=== PATIENT | female | born 1965 | race Caucasian/White ===

== ENCOUNTER 2024-04-18 19:35 | Emergency (ER) | payer MEDICAID ==
[~2024-04-18] VITALS: Ht 167.6 cm; Wt 70.0 kg
[2024-04-18 19:38] VITALS: O2SAT 97
[2024-04-18] MEDS: KETOROLAC 15MG/ML VIAL IM ONE (20:50)
[2024-04-18] MEDS ORDERED: LIDO700A15 TP (21:50)
[2024-04-18] MEDS ORDERED: NAPR-1176 MT (21:50)
[2024-04-18 22:50] VITALS: BP 138/88; PULSE 90; RESP 16; TEMP 36.55848; O2SAT 97
== END 2024-04-18 22:51 | disposition home or self-care (01) ==
LOC: ER 19:35
DX: S20.411A Abrasion of right back wall of thorax, initial encounter (principal); M54.50 Low back pain, unspecified; Z88.8 Allergy status to other drugs, medicaments and biological substances; Z88.6 Allergy status to analgesic agent; Z88.5 Allergy status to narcotic agent; X58.XXXA Exposure to other specified factors, initial encounter; Y93.89 Activity, other specified; Y92.89 Other specified places as the place of occurrence of the external cause; Y99.8 Other external cause status
CPT/HCPCS: 96372; 99283; J1885; Z7610